=== PATIENT | male | born 1980 | race African-American/Black ===

== ENCOUNTER 2017-12-03 18:25 | Emergency (ER) | payer SELFPAY ==
[~2017-12-03] VITALS: Ht 167.6 cm; Wt 59.1 kg
[2017-12-03 19:46] LABS: BASOPHIL (%) 0.4 % (0-1); EOSINOPHIL (%) 1.9 % (0-5); EOSINOPHIL COUNT 0.1 K/uL (0-0.3); HEMATOCRIT 45.8 % (38.0-50.0); HEMOGLOBIN 15.9 G/DL (12.5-16.6); IMMATURE GRANULOCYTE (%) 0.4 % (0.0-0.7); LYMPHOCYTE (%) 34.2 % (15-42); LYMPHOCYTE COUNT 1.7 K/uL (1.0-2.8); MCHC 34.7 G/DL (30.0-36.0); MCV 83.4 FL (86-99); MONOCYTE (%) 8.3 % (3-12); MONOCYTE COUNT 0.4 K/uL (0-0.8); NEUTROPHIL (%) 54.8 % (45-76); NEUTROPHIL COUNT 2.6 K/uL (1.8-6.4); PLATELET COUNT 212 K/uL (156-360); RED BLOOD COUNT 5.49 M/uL (4.00-5.50); WHITE BLOOD COUNT 4.8 K/uL (4.1-10.2)
[2017-12-03 19:54] LABS: CHLORIDE 103 mEq/L (99-109); POTASSIUM 4.1 mEq/L (3.7-5.4); SODIUM 138 mEq/L (136-147)
[2017-12-03 19:56] LABS: GLUCOSE 76 mg/dL (70-99)
[2017-12-03 19:59] LABS: SERUM ETHYL ALCOHOL < 10 mg/dL
[2017-12-03 20:01] LABS: UREA NITROGEN (BUN) 17 mg/dL (9-23)
[2017-12-03 20:04] LABS: GFR ESTIMATE (CALCULATED) > 59 mL/min/ (58.99-99999)
[2017-12-03 20:53] VITALS: BP 125/77
[2017-12-03 20:53] LABS: AMPHETAMINE NEGATIVE (500 ng/mL); BARBITURATES NEGATIVE (200 ng/mL); BENZODIAZEPINES NEGATIVE (150 ng/mL); BUPRENORPHINE NEGATIVE (10 ng/mL); COCAINE NEGATIVE (150 ng/mL); METHADONE NEGATIVE (200 ng/mL); METHAMPHETAMINE NEGATIVE (500 ng/mL); OPIATES (MORPHINE) NEGATIVE (100 ng/mL); OXYCODONE NEGATIVE (100 ng/mL); PHENCYCLIDINE NEGATIVE (25 ng/mL); PROPOXYPHENE NEGATIVE (300 ng/mL); THC CANNABINOIDS NEGATIVE (50 ng/mL); TRICYCLIC ANTIDEPRESSANTS NEGATIVE (300 ng/mL)
== END 2017-12-03 20:53 | disposition home or self-care (01) ==
LOC: EME 18:25
PROVIDERS: Emergency Medicine
DX: F43.25 Adjustment disorder with mixed disturbance of emotions and conduct (principal)
CPT/HCPCS: 80048; 85025; 90837; 99281; 99285; G0480